=== PATIENT | male | born 1975 | race Caucasian/White ===

== ENCOUNTER 2017-06-19 10:27 | Emergency (ER) | payer OTHER, BC ==
[2017-06-19] MEDS: SOD CHLORIDE 0.9% 1,000 ML IV (13:38)
[2017-06-19 13:42] LABS: ADD MAN DIFF? NO
[2017-06-19 13:45] LABS: BASOPHILS % 0.3 % (0.0-2.0); HEMATOCRIT 37.3 % (42.0-52.0); HEMOGLOBIN 12.3 g/dl (14.0-18.0); LYMPHOCYTES # 1.1 10^3/ul (0.8-2.9); LYMPHOCYTES % 26.6 % (15.0-51.0); MONOCYTE # 0.4 10^3/ul (0.3-0.9); MONOCYTES % 9.8 % (0.0-11.0); NEUTROPHIL # 2.5 10^3/ul (1.6-7.5); PLATELET COUNT 203 10^3/UL (140-415); RED BLOOD COUNT 4.39 10^6/ul (4.70-6.10); RED CELL DISTRIBUTION WIDTH 13.2 % (11.5-14.5)
[2017-06-19] MEDS: IBUPROFEN 600 MG TAB PO (13:47)
[2017-06-19] MEDS: ONDANSETRON (ODT) 4 MG TAB ODT (13:47)
[2017-06-19 14:03] LABS: ALANINE AMINOTRANSFERASE 43 IU/L (13-69); ALBUMIN/GLOBULIN RATIO 1.42; ALKALINE PHOSPHATASE 80 IU/L (42-121); ANION GAP 17 (8-16); ASPARTATE AMINO TRANSFERASE 30 IU/L (15-46); BLOOD UREA NITROGEN 9 mg/dl (7-20); CALCIUM 8.1 mg/dl (8.4-10.2); CARBON DIOXIDE 22 mmol/L (21-31); CHLORIDE 104 mmol/L (97-110); CREATININE 0.64 mg/dl (0.61-1.24); GLUCOSE 119 mg/dl (70-220); POTASSIUM 4.2 mmol/L (3.5-5.1); SODIUM 139 mmol/L (135-144); TOTAL PROTEIN 6.8 g/dl (6.1-8.1)
== END 2017-06-19 15:55 | disposition home or self-care (01) ==
LOC: FTE 10:27
DX: R50.9 Fever, unspecified (principal); R05 Cough; R63.0 Anorexia
CPT/HCPCS: 36415; 71045; 80053; 85025; 99284-25